=== PATIENT | female | born 1990 | race Caucasian/White ===

== ENCOUNTER → 2016-07-29 | Outpatient (CLI) | payer OTHER ==
[2016-07-29 17:30] LABS: BASO ABS # 0.06 K/uL (0-0.2); COMPLETE YES; EOS % 3.2 %; HEMATOCRIT 40.5 % (37-47); IG% 0.2 %; LYMPH % 24.6 %; LYMPH ABS # 1.54 K/uL (1.2-3.4); MEAN CELL VOLUME 89.8 fL (80-100); MEAN CORPUSCULAR HEMOGLOBIN 30.6 pg (25-34); MEAN CORPUSCULAR HGB CONC 34.1 g/dl (32-36); MEAN PLATELET VOLUME 10.2 fL (7.4-10.4); MONO % 6.2 %; NEUT % 64.8 %; PLATELET COUNT 321 K/uL (130-400); RED BLOOD COUNT 4.51 M/uL (4.2-5.4); WHITE BLOOD COUNT 6.25 K/uL (4.8-10.8)
[2016-07-29 17:49] LABS: ALT/SGPT 19 U/L (12-78); AST/SGOT 16 U/L (15-37); BLOOD UREA NITROGEN 10 mg/dl (7-18); BUN/CREATININE RATIO 12.5 (10-20); CARBON DIOXIDE 25 mmol/L (21-32); CHLORIDE 106 mmol/L (98-107); CREATININE 0.77 mg/dl (0.60-1.20); GLUCOSE 77 mg/dl (70-99); POTASSIUM 4.1 mmol/L (3.5-5.1); SODIUM 141 mmol/L (136-145)
[2016-07-29 17:51] LABS: ALB/GLOB RATIO 0.9 (0.9-2); ALKALINE PHOSPHATASE 45 U/L (45-117); CHOLESTEROL 193 mg/dl (0-200); CHOLESTEROL/HDL RATIO 2.4; HDL CHOLESTEROL 79 mg/dl; LDL CHOLESTEROL CALCULATED 78 mg/dl; TRIGLYCERIDES 181 mg/dl (0-150); VERY LOW DENSITY LIPOPROT CALC 36 mg/dl
== END | disposition home or self-care (01) ==
LOC: C.LABBC 12:09
PROVIDERS: ATTEND Internal Medicine Geriatric Medicine
DX: G43.009 Migraine without aura, not intractable, without status migrainosus (principal); F41.9 Anxiety disorder, unspecified

== ENCOUNTER → 2017-03-18 | Outpatient (CLI) | payer OTHER ==
[~2017-03-18] MED LIST: GADAVIST IV PRN
--- NOTE | 2017-03-21 13:33 | MAMMOGRAPHY REPORT ---
BREAST MRI OF BOTH BREASTS : 03/18/2017 CLINICAL HISTORY: Screening breast MRI. Strong family history of breast cancer. COMPARISON: No prior exams were available for comparison. Technique: The patient was placed prone in a dedicated breast imaging coil. Precontrast axial T1-mara ghted, axial T2-weighted fat saturation, and axial T1-weighted fat saturation images were obtained. After the administration of 6.5 mL of Gadavist IV contrast, sequential T1-weighted fat saturation rhoda ges were obtained. Subtraction images were obtained of the dynamic contrast enhanced sequences, and 3-D reformations were performed. The [employer] software was used for kinetic analysis. Findings: There is moderate background parenchymal enhancement involving bilateral breasts. There are no suspi cious enhancing masses or areas of abnormal non-mass enhancement seen within either breast. Strandy fibroglandular tissue is seen within the left axillary soft tissues, compatible with accessory axilla ry breast tissue. There is no evidence of axillary adenopathy. The chest wall structures are negative. Visualized ext ramammary soft tissues are unremarkable. IMPRESSION: ACR BI-RADS CATEGORY 1: NEGATIVE No MRI evidence of malignancy in either breast. Recommend screening bilateral breast MRI in one year . Layne Butler M.D. 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
== END | disposition home or self-care (01) ==
LOC: C.MRI 12:57
PROVIDERS: ATTEND Nurse Practitioner Women's Health
DX: Z80.3 Family history of malignant neoplasm of breast (principal)